=== PATIENT | female | born 1995 | race Hispanic/Latino ===

== ENCOUNTER 2016-06-21 14:33 | Emergency (ER) | payer SELFPAY ==
[2016-06-21 14:35] VITALS: BMI 33.3
[2016-06-21] MEDS ORDERED: guaiFENesin 200 mg/10 ml Syrup UD PO STA (15:12)
[2016-06-21] MEDS ORDERED: Levalbuterol 1.25 MG/3 ML Inhal Soln UD IH STA (15:12)
--- NOTE | 2016-06-21 15:22 | ED PDOC ---
Arrival/HPI - General Chief Complaint: Cough, Cold, Congestion Time Seen by Provider: 06/21/16 14:55 Historian: Patient - History of Present Illness Narrative History of Present Illness (Text): 06/21/16 15:04 A 20 year old female presents to the emergency department complaining of shortness of breath associated with mid sternal chest pain that began an hour prior to arrival. Patient reports every time she tries to take a breath her stomach retracts. She notes some dizziness but denies any anxiety, abdominal pain, nausea, vomiting, or any other complaints at this time. Patient last menstrual cycle was mid last month. PMD: Dr. Mckeon Time/Duration: 1 hour Symptom Onset: Sudden Symptom Course: Unchanged Quality: Other Activities at Onset: Rest Context: Home Past Medical History - Provider Review Nursing Documentation Reviewed: Yes - Infectious Disease Hx of Infectious Diseases: None - Tetanus Immunization Tetanus Immunization: Up to Date - Past Medical History Past Medical History: No Previous - Cardiac Hx Cardiac Disorders: No - Pulmonary Hx Respiratory Disorders: No - Neurological Hx Neurological Disorder: No - HEENT Hx HEENT Disorder: No - Renal Hx Renal Disorder: No - Endocrine/Metabolic Hx Endocrine Disorders: No - Hematological/Oncological Hx Blood Disorders: Yes Hx Anemia: Yes - Integumentary Hx Dermatological Disorder: No - Musculoskeletal/Rheumatological Hx Musculoskeletal Disorders: No Hx Falls: No - Gastrointestinal Hx Gastrointestinal Disorders: No - Genitourinary/Gynecological Hx Genitourinary Disorders: No - Psychiatric Hx Psychophysiologic Disorder: Yes Hx Depression: Yes Hx Substance Use: No - Past Surgical History Past Surgical History: No Previous - Anesthesia Hx Anesthesia: No Hx Anesthesia Reactions: No Hx Malignant Hyperthermia: No - Suicidal Assessment Feels Threatened In Home Enviroment: No Family/Social History - Physician Review Nursing Documentation Reviewed: Yes Family/Social History: No Known Family HX Smoking Status: Never Smoked Hx Alcohol Use: No Hx Substance Use: No Hx Substance Use Treatment: No Allergies/Home Meds Allergies/Adverse Reactions: Allergies tea tree Allergy (Verified 06/21/16 14:40) ANAPHYLAXIS Review of Systems - Physician Review All systems were reviewed & negative as marked: Yes - Review of Systems Constitutional: absent: Fevers ENT: Normal Respiratory: SOB Cardiovascular: Chest Pain Gastrointestinal: absent: Abdominal Pain, Nausea, Vomiting Genitourinary Female: absent: Dysuria Psychiatric: absent: Anxiety Physical Exam Vital Signs Reviewed: Yes Vital Signs Temp Pulse Resp BP Pulse Ox 06/21/16 17:00 65 18 112/59 L 99 06/21/16 15:24 97.6 F 68 18 110/58 L 99 Temperature: Afebrile Blood Pressure: Normal Pulse: Regular Respiratory Rate: Normal Appearance: Positive for: Other (appears to be actively hiccuping) Pain Distress: None Mental Status: Positive for: Alert and Oriented X 3 - Systems Exam Head: Present: Atraumatic, Normocephalic Pupils: Present: PERRL Conjunctiva: Present: Normal Mouth: Present: Moist Mucous Membranes Pharnyx: Present: Normal. No: ERYTHEMA, EXUDATE Neck: Present: Normal Range of Motion Respiratory/Chest: Present: Clear to Auscultation, Good Air Exchange. No: Respiratory Distress, Accessory Muscle Use Cardiovascular: Present: Regular Rate and Rhythm, Normal S1, S2. No: Murmurs Abdomen: Present: Normal Bowel Sounds. No: Tenderness, Distention, Peritoneal Signs Back: Present: Normal Inspection Upper Extremity: Present: Normal Inspection. No: Cyanosis, Edema Lower Extremity: Present: Normal Inspection. No: Edema Neurological: Present: GCS=15, CN II-XII Intact, Speech Normal Skin: Present: Warm, Dry, Normal Color. No: Rashes Psychiatric: Present: Alert, Oriented x 3, Normal Insight, Normal Concentration Medical Decision Making ED Course and Treatment: 06/21/16 15:04 Impression: A 20 year old female with shortness of breath and chest discomfort. Differential Diagnosis include but are not limited to: PE vs. bronchitis Plan: -- EKG -- Chest X-ray -- Labs -- POC Urine Preg -- Pepcid, Robitussin, and Xopenex -- Reassess and disposition Prior Visits: Notes and results from previous visits were reviewed. The patient last presented to the emergency department on 04/23/16 for evaluation of abdominal pain, nausea and vomiting. Progress Notes: EKG: Ordered, reviewed, and independently interpreted the EKG. Rate : 89 BPM Rhythm : NSR Interpretation : normal intervals, normal axis, no ST/T changes 06/21/16 18:40 Patient is feeling much better; says felt like the neb helped the most - symptoms have fully resolved. CXR is normal and d-dimer normal - will dc. - Lab Interpretations Lab Results: 06/21/16 16:05 Lab Results 06/21/16 16:05: D-Dimer, Quantitative 0.41 06/21/16 16:05: Sodium 136, Potassium 3.9, Chloride 106, Carbon Dioxide 23, Anion Gap 11, BUN 15, Creatinine 0.8, Est GFR ( Amer) > 60, Est GFR (Non- Af Amer) > 60, Random Glucose 80, Calcium 9.0, Total Bilirubin 0.5, AST 41 H, ALT 41, Alkaline Phosphatase 72, Total Protein 7.6, Albumin 4.1, Globulin 3.6, Albumin/Globulin Ratio 1.1 I have reviewed the lab results: Yes - RAD Interpretation Radiology Orders: 06/21/16 15:08 CHEST TWO VIEWS (PA/LAT) [RAD] Stat - Medication Orders Current Medication Orders: Discontinued Medications Famotidine (Pepcid) 20 mg IVP STAT STA Stop: 06/21/16 15:13 Last Admin: 06/21/16 16:14 Dose: 20 mg Guaifenesin (Robitussin) 400 mg PO ONCE STA Stop: 06/21/16 15:13 Last Admin: 06/21/16 16:14 Dose: 400 mg Levalbuterol HCl (Xopenex) 1.25 mg IH STAT STA Stop: 06/21/16 15:13 Last Admin: 06/21/16 16:14 Dose: 1.25 mg - Scribe Statement The provider has reviewed the documentation as recorded by the Nimisha Lema Provider Scribe Attestation: All medical record entries made by the Rodolfoibbijan were at my direction and personally dictated by me. I have reviewed the chart and agree that the record accurately reflects my personal performance of the history, physical exam, medical decision making, and the department course for this patient. I have also personally directed, reviewed, and agree with the discharge instructions and disposition. Disposition/Present on Arrival - Present on Arrival Any Indicators Present on Arrival: No History of DVT/PE: No History of Uncontrolled Diabetes: No Urinary Catheter: No History of Decub. Ulcer: No History Surgical Site Infection Following: None - Disposition Have Diagnosis and Disposition been Completed?: Yes Diagnosis: Atypical chest pain Disposition: HOME/ ROUTINE Disposition Time: 18:40 Patient Plan: Discharge Patient Problems: Current Active Problems Problem Status Onset Atypical chest pain Acute Condition: GOOD Discharge Instructions (ExitCare): Chest Pain (ED) Additional Instructions: Use Robitussin over the counter and prescribed inhaler as needed. Follow up with your primary care doctor. Return to the emergency department if any new concerning symptoms. Prescriptions: Albuterol HFA [Ventolin HFA 90 mcg/actuation (8 g)] 2 puff IH Q4H PRN #1 inhaler PRN Reason: Shortness Of Breath Referrals: Eleuterio Mckeon MD [Primary Care Provider] - Follow up with primary
[2016-06-21 15:25] VITALS: RESP 18; TEMP 97.6; O2SAT 99
[2016-06-21 16:41] LABS: ALB/GLOB RATIO 1.1 (1.1-1.8); ALKALINE PHOSPHATASE 72 U/L (38-133); ALT/SGPT 41 U/L (7-56); AST/SGOT 41 U/L (15-39); BILIRUBIN,TOTAL 0.5 mg/dL (0.2-1.3); BLOOD UREA NITROGEN 15 mg/dL (7-21); CARBON DIOXIDE 23 mmol/L (21-33); CHLORIDE 106 mmol/L (98-107); GFR AFRICAN-AMERICAN > 60; GLUCOSE,RANDOM 80 mg/dL (70-110); POTASSIUM 3.9 mmol/L (3.6-5.0); SODIUM 136 mmol/L (132-148); TOTAL PROTEIN 7.6 g/dL (5.8-8.3)
[2016-06-21 17:07] VITALS: BP 112/59; PULSE 65
--- NOTE | 2016-06-21 18:28 | RAD ---
HISTORY: chest pain COMPARISON: Chest x-ray performed 11/22/15 TECHNIQUE: Chest PA and lateral FINDINGS: Examination limited by habitus. LUNGS: No focal consolidation. Please note that chest x-ray has limited sensitivity for the detection of pulmonary masses. PLEURA: No significant pleural effusion identified. No definite pneumothorax . CARDIOVASCULAR: The cardiomediastinal silhouette appears within normal limits of size. OSSEOUS STRUCTURES: No acute osseous abnormality identified. VISUALIZED UPPER ABDOMEN: Unremarkable. OTHER FINDINGS: None. IMPRESSION: No focal consolidation, significant pleural effusion, or definite pneumothorax identified.
--- NOTE | 2016-06-22 13:06 | CARD ---
APPROVED REPORT EKG Measurement Heart [id number] <Conclusion> Normal sinus rhythm Normal ECG
== END 2016-06-21 18:50 | disposition home or self-care (01) ==
LOC: ED 14:33
DX: R07.89 Other chest pain (principal)

== ENCOUNTER 2016-07-06 14:29 | Emergency (ER) | payer OTHER ==
[2016-07-06 14:29] VITALS: BMI 33.3
[2016-07-06 15:22] VITALS: TEMP 98.1; O2SAT 100
--- NOTE | 2016-07-06 15:33 | ED PDOC ---
Arrival/HPI - General Time Seen by Provider: 07/06/16 14:44 Historian: Patient - History of Present Illness Narrative History of Present Illness (Text): 20 F with pmh of depression and anemia presents to the ED with shortness of breath and chest tightness. Pt stated that her sob started this morning when she was walking. She had a sudden onset of sob and chest tightness which is worse with deep breaths. She states that she tried Ventolin inhaler 3 times and the third time helped. She states that similar episode happened 2 weeks ago when she was first diagnosed and she came to the ED and was given her Ventolin inhaler. She denies any gómez, dizziness, f/c, cough, cp, palpitations, abd pain, n /v/d, urinary or bm changes. Time/Duration: Prior to Arrival Symptom Onset: Sudden Symptom Course: Improving Past Medical History - Provider Review Nursing Documentation Reviewed: Yes - Infectious Disease Hx of Infectious Diseases: None - Tetanus Immunization Tetanus Immunization: Up to Date - Past Medical History Past Medical History: No Previous - Cardiac Hx Cardiac Disorders: No - Pulmonary Hx Respiratory Disorders: No - Neurological Hx Neurological Disorder: No - HEENT Hx HEENT Disorder: No - Renal Hx Renal Disorder: No - Endocrine/Metabolic Hx Endocrine Disorders: No - Hematological/Oncological Hx Blood Disorders: Yes Hx Anemia: Yes - Integumentary Hx Dermatological Disorder: No - Musculoskeletal/Rheumatological Hx Musculoskeletal Disorders: No Hx Falls: No - Gastrointestinal Hx Gastrointestinal Disorders: No - Genitourinary/Gynecological Hx Genitourinary Disorders: No - Psychiatric Hx Psychophysiologic Disorder: Yes Hx Depression: Yes Hx Substance Use: No - Past Surgical History Past Surgical History: No Previous - Anesthesia Hx Anesthesia: No Hx Anesthesia Reactions: No Hx Malignant Hyperthermia: No - Suicidal Assessment Feels Threatened In Home Enviroment: No Family/Social History Family/Social History: No Known Family HX Smoking Status: Never Smoked Hx Alcohol Use: No Hx Substance Use: No Hx Substance Use Treatment: No Allergies/Home Meds Allergies/Adverse Reactions: Allergies tea tree Allergy (Verified 07/06/16 15:02) ANAPHYLAXIS Review of Systems - Review of Systems Constitutional: absent: Fatigue, Fevers Eyes: absent: Vision Changes ENT: absent: Hearing Changes Respiratory: SOB, Wheezing. absent: Cough Cardiovascular: absent: Chest Pain, Palpitations Gastrointestinal: absent: Abdominal Pain, Diarrhea, Nausea, Vomiting Genitourinary Female: absent: Dysuria, Frequency Skin: absent: Rash Neurological: absent: Headache, Dizziness Psychiatric: Depression. absent: Anxiety Physical Exam Vital Signs Temp Pulse Resp BP Pulse Ox 07/06/16 16:16 98.1 F 87 17 112/56 L 100 07/06/16 15:19 98.1 F 83 16 154/72 H 100 Temperature: Afebrile Blood Pressure: Hypertensive Pulse: Regular Respiratory Rate: Normal Appearance: Positive for: Well-Appearing, Non-Toxic, Comfortable Pain Distress: None Mental Status: Positive for: Alert and Oriented X 3 - Systems Exam Head: Present: Atraumatic, Normocephalic Pupils: Present: PERRL Extroacular Muscles: Present: EOMI Mouth: Present: Moist Mucous Membranes Neck: Present: Normal Range of Motion Respiratory/Chest: Present: Clear to Auscultation, Good Air Exchange. No: Respiratory Distress, Accessory Muscle Use, Wheezes, Rales Cardiovascular: Present: Regular Rate and Rhythm, Normal S1, S2. No: Murmurs Abdomen: Present: Normal Bowel Sounds. No: Tenderness, Distention, Peritoneal Signs Upper Extremity: Present: Normal Inspection. No: Cyanosis, Edema Lower Extremity: Present: Normal Inspection. No: Edema Neurological: Present: GCS=15, CN II-XII Intact, Speech Normal Skin: Present: Warm, Dry, Normal Color. No: Rashes Psychiatric: Present: Alert, Oriented x 3, Normal Insight, Normal Concentration Medical Decision Making ED Course and Treatment: Impression: 20 F with pmh of depression and anemia presents to the ED with shortness of breath and chest tightness. Differential diagnoses: Asthma exacerbation vs anxiety Plan: - CBC, CMP, Mg, P - EKG stat - CXR - Urinalysis - Duoneb x 3 - Solumedrol 12mg stat - Will reevaluate and dispo Patient was here on 06/21/16 here in the ED for similar symptoms. Progress Note: 07/06/16 16:22 CXR - No active disease Pt clinically improved. No wheezing on exam. Pt told to f/u with her PMD for better control of her asthma. - Lab Interpretations Lab Results: 07/06/16 15:25 07/06/16 15:25 Lab Results 07/06/16 15:25: Sodium 141, Potassium 4.0, Chloride 105, Carbon Dioxide 26, Anion Gap 14, BUN 14, Creatinine 1.0, Est GFR ( Amer) > 60, Est GFR (Non- Af Amer) > 60, Random Glucose 94, Calcium 9.7, Phosphorus 4.4, Magnesium 2.3 H, Total Bilirubin 0.4, AST 36, ALT 39, Alkaline Phosphatase 57, Total Protein 8.1 , Albumin 4.2, Globulin 3.9, Albumin/Globulin Ratio 1.1 07/06/16 15:25: Urine Color Yellow, Urine Appearance Clear, Urine pH 6.0, Ur Specific [place] >= 1.030, Urine Protein 30 H, Urine Glucose (UA) Negative, Urine Ketones Negative, Urine Blood Negative, Urine Nitrate Negative, Urine Bilirubin Negative, Urine Urobilinogen 1.0 H, Ur Leukocyte Esterase Negative, Urine RBC 0 - 2, Urine WBC 0 - 2, Ur Epithelial Cells 6 - 8, Calcium Oxalate Crystal Small, Urine Bacteria Mod 07/06/16 15:25: WBC 6.3, RBC 4.64, Hgb 12.4, Hct 37.4, MCV 80.6, MCH 26.7, MCHC 33.2, RDW 14.8 H, Plt Count 411, MPV 9.0, Gran % 53.5, Lymph % (Auto) 33.8, [place] % (Auto) 9.6 H, Eos % (Auto) 2.5, Baso % (Auto) 0.6, Gran # 3.39, Lymph # 2.1, [place] # 0.6, Eos # 0.2, Baso # 0.04 - RAD Interpretation Radiology Orders: 07/06/16 15:18 CXR [CHEST PORTABLE] [RAD] Stat - Medication Orders Current Medication Orders: Discontinued Medications Albuterol/Ipratropium (Duoneb 3 Mg/0.5 Mg (3 Ml) Ud) 3 ml IH Q15M [place] Stop: 07/06/16 16:16 Last Admin: 07/06/16 15:57 Dose: 3 ml Methylprednisolone (Solu-Medrol) 125 mg IVP STAT STA Stop: 07/06/16 15:35 Last Admin: 07/06/16 15:40 Dose: 125 mg Disposition/Present on Arrival - Present on Arrival Any Indicators Present on Arrival: Yes History of DVT/PE: No History of Uncontrolled Diabetes: No Urinary Catheter: No History Surgical Site Infection Following: None - Disposition Have Diagnosis and Disposition been Completed?: Yes Diagnosis: Asthma exacerbation Disposition: HOME/ ROUTINE Disposition Time: 16:26 Patient Plan: Discharge Patient Problems: Current Active Problems Problem Status Onset Asthma exacerbation Acute Condition: IMPROVED Additional Instructions: Charis Olivares, thank you for letting us take care of you today. Your provider was Dr Katz. You were treated for Asthma exacerbation. The emergency medical care you received today was directed at your acute symptoms. If you were prescribed any medication, please fill it and take as directed. It may take several days for your symptoms to resolve. Return to the Emergency Department if your symptoms worsen, do not improve, or if you have any other problems. Please contact your doctor or call one of the physicians/clinics you have been referred to that are listed on the Patient Visit Information form that is included in your discharge packet. Bring any paperwork you were given at discharge with you along with any medications you are taking to your follow up visit. Our treatment cannot replace ongoing medical care by a primary care provider (PCP) outside of the emergency department. Thank you for allowing the [facility] team to be part of your care today. If you had an X-Ray or CT scan: A Radiologist will review the ED reading if any change in treatment is needed we will contact you. If you had a blood, urine, or wound culture: It will take several days for the results, if any change in treatment is needed we will contact you. If you had an STI test: It will take 48 hours for the results. Please call after 1 week if you have not heard back. Prescriptions: Albuterol HFA [Ventolin HFA 90 mcg/actuation (8 g)] 2 puff IH Q4H PRN #1 puff PRN Reason: Shortness Of Breath Prednisone [Deltasone] 40 mg PO DAILY #4 tablet
[2016-07-06] MEDS: Albuterol-Ipratrop 3 mg / 0.5 (3 ml) UD IH SCH ×2 (15:40→15:57)
[2016-07-06 15:41] LABS: ADD MANUAL DIFF? NO
[2016-07-06 16:07] LABS: URINE BILIRUBIN NEGATIVE (NEGATIVE); URINE BLOOD NEGATIVE (NEGATIVE); URINE GLUCOSE (UA) NEGATIVE (NEGATIVE); URINE KETONE NEGATIVE (NEGATIVE); URINE LEUKOCYTE ESTERASE NEGATIVE Leu/uL (NEGATIVE); URINE PROTEIN 30 mg/dL (<30 mg/dL)
[2016-07-06 16:08] LABS: ALB/GLOB RATIO 1.1 (1.1-1.8); ALKALINE PHOSPHATASE 57 U/L (38-133); ALT/SGPT 39 U/L (7-56); AST/SGOT 36 U/L (15-39); BILIRUBIN,TOTAL 0.4 mg/dL (0.2-1.3); BLOOD UREA NITROGEN 14 mg/dL (7-21); CALCIUM 9.7 mg/dL (8.4-10.5); CARBON DIOXIDE 26 mmol/L (21-33); CHLORIDE 105 mmol/L (98-107); GFR AFRICAN-AMERICAN > 60; GLUCOSE,RANDOM 94 mg/dL (70-110); MAGNESIUM 2.3 mg/dL (1.7-2.2); PHOSPHOROUS 4.4 mg/dL (2.5-4.5); SODIUM 141 mmol/L (132-148); TOTAL PROTEIN 8.1 g/dL (5.8-8.3)
[2016-07-06 16:10] LABS: URINE APPEARANCE CLEAR (CLEAR); URINE COLOR YELLOW (YELLOW)
--- NOTE | 2016-07-06 16:11 | RAD ---
HISTORY: sob COMPARISON: 06/21/2016 FINDINGS: LUNGS: No active pulmonary disease. PLEURA: No significant pleural effusion identified, no pneumothorax apparent. CARDIOVASCULAR: Normal. OSSEOUS STRUCTURES: No significant abnormalities. VISUALIZED UPPER ABDOMEN: Normal. OTHER FINDINGS: None. IMPRESSION: No active disease.
[2016-07-06 16:13] LABS: HEMATOCRIT 37.4 % (36.0-48.0); MEAN CELL VOLUME 80.6 fL (80.0-105.0); MEAN CORPUSCULAR HEMOGLOBIN 26.7 pg (25.0-35.0); WHITE BLOOD COUNT 6.3 10^3/ul (4.5-11.0)
[2016-07-06 16:14] LABS: BASO % 0.6 % (0.0-3.0); EOS % 2.5 % (1.5-5.0); GRAN # 3.39 (1.4-6.5); GRAN % 53.5 % (50.0-68.0); LYMPH # 2.1 (1.2-3.4); LYMPH % 33.8 % (22.0-35.0); MEAN CORPUSCULAR HGB CONC 33.2 g/dl (31.0-37.0); MONO # 0.6 (0.1-0.6); MONO % 9.6 % (1.0-6.0); PLATELET COUNT 411 10^3/uL (120.0-450.0); RED CELL DISTRIBUTION WIDTH 14.8 % (11.5-14.5)
[2016-07-06 16:15] LABS: BASO # 0.04 K/mm3 (0.0-2.0); EOS # 0.2 (0.0-0.7)
[2016-07-06 16:17] VITALS: BP 112/56; PULSE 87; RESP 17
[2016-07-06 16:36] LABS: URINE BACTERIA MOD (NEG); URINE CALCIUM OXALATE CRYSTALS SMALL /hpf; URINE RBC 0 - 2 /hpf (0-2); URINE WBC 0 - 2 /hpf (0-6)
--- NOTE | 2016-07-07 10:16 | CARD ---
APPROVED REPORT EKG Measurement Heart [id number] <Conclusion> Normal sinus rhythm with sinus arrhythmia Normal ECG
== END 2016-07-06 16:45 | disposition home or self-care (01) ==
LOC: ED 14:29
DX: J45.901 Unspecified asthma with (acute) exacerbation (principal)
CPT/HCPCS: 71010; 80053; 81001; 83735; 84100; 84443; 85025; 93005; 96374; 99283; J2930

== ENCOUNTER 2016-07-29 13:02 | Emergency (ER) | payer OTHER ==
[2016-07-29 13:02] VITALS: BMI 33.3
[2016-07-29] MEDS ORDERED: Albuterol-Ipratrop 3 mg / 0.5 (3 ml) UD IH STA (13:08)
[2016-07-29 13:12] VITALS: BP 154/89; RESP 20; O2SAT 100
--- NOTE | 2016-07-29 13:15 | ED PDOC ---
Arrival/HPI - General Time Seen by Provider: 07/29/16 13:08 Historian: Patient - History of Present Illness Narrative History of Present Illness (Text): 07/29/16 13:02 Charis Olivares is a 20 year old female who presents to the emergency department complaining of difficulty breathing that began about 1/2 an hour ago. Patient states that she was working when she began to experience a sudden onset of shortness of breath and mid-sternal chest pain. Patient notes that she experienced similar symptoms before and was diagnosed with Asthma after being evaluated at the hospital and by her doctor. Patient currently uses an inhaler. Patient denies any other complaint at this time. Patient states that she is not a smoker and her last menstrual cycle was 2 weeks ago. PMD: Dr. Mckeon Time/Duration: 1/2 hour Symptom Onset: Sudden Symptom Course: Unchanged Severity Level: Moderate Activities at Onset: Light Context: Work Associated Symptoms (Text): 07/29/16 13:35 Acute onset of shortness of breath and chest pain 30 minutes prior to arrival. Patient is hyperventilating and extremely anxious and has symptoms out of proportion to her examination. Her pulse oximetry is 100%. Her lungs are clear. She has had similar episodes in the past diagnosed with asthma. No cough congestion or URI. Past Medical History - Provider Review Nursing Documentation Reviewed: Yes - Infectious Disease Hx of Infectious Diseases: None - Tetanus Immunization Tetanus Immunization: Up to Date - Past Medical History Past Medical History: No Previous - Cardiac Hx Cardiac Disorders: No - Pulmonary Hx Respiratory Disorders: No - Neurological Hx Neurological Disorder: No - HEENT Hx HEENT Disorder: No - Renal Hx Renal Disorder: No - Endocrine/Metabolic Hx Endocrine Disorders: No - Hematological/Oncological Hx Blood Disorders: Yes Hx Anemia: Yes - Integumentary Hx Dermatological Disorder: No - Musculoskeletal/Rheumatological Hx Musculoskeletal Disorders: No Hx Falls: No - Gastrointestinal Hx Gastrointestinal Disorders: No - Genitourinary/Gynecological Hx Genitourinary Disorders: No - Psychiatric Hx Psychophysiologic Disorder: Yes Hx Depression: Yes Hx Substance Use: No - Past Surgical History Past Surgical History: No Previous - Anesthesia Hx Anesthesia: No Hx Anesthesia Reactions: No Hx Malignant Hyperthermia: No - Suicidal Assessment Feels Threatened In Home Enviroment: No Family/Social History - Physician Review Nursing Documentation Reviewed: Yes Family/Social History: No Known Family HX Smoking Status: Never Smoked Hx Alcohol Use: No Hx Substance Use: No Hx Substance Use Treatment: No Allergies/Home Meds Allergies/Adverse Reactions: Allergies tea tree Allergy (Verified 07/06/16 15:02) ANAPHYLAXIS Review of Systems - Physician Review All systems were reviewed & negative as marked: Yes - Review of Systems Constitutional: absent: Fevers, Night Sweats Eyes: absent: Vision Changes ENT: absent: Hearing Changes Respiratory: SOB. absent: Cough Cardiovascular: Chest Pain. absent: Palpitations, Syncope Gastrointestinal: absent: Abdominal Pain, Diarrhea, Nausea, Vomiting, Appetite Changes Genitourinary Female: absent: Dysuria, Urine Output Changes Musculoskeletal: absent: Arthralgias, Back Pain, Neck Pain Skin: absent: Rash Neurological: absent: Headache, Dizziness Endocrine: absent: Diaphoresis Hemo/Lymphatic: absent: Adenopathy Psychiatric: absent: Anxiety Physical Exam Vital Signs Temp Pulse Resp BP Pulse Ox 07/29/16 16:01 98.6 F 88 20 100 07/29/16 13:02 97.9 F 72 20 154/89 H 100 Temperature: Afebrile Blood Pressure: Hypertensive Pulse: Regular Respiratory Rate: Tachypneic Appearance: Positive for: Uncomfortable, Other (obese) Pain Distress: None Mental Status: Positive for: Alert and Oriented X 3 - Systems Exam Head: Present: Atraumatic, Normocephalic Pupils: Present: PERRL Extroacular Muscles: Present: EOMI Conjunctiva: No: Normal, Injected, Icteric, Other Mouth: Present: Moist Mucous Membranes Pharnyx: No: ERYTHEMA, EXUDATE, TONSILS ENLARGED Neck: Present: Normal Range of Motion Respiratory/Chest: Present: Decreased Breath Sounds (diminished), Tachypneic, Tender to Palpation (Chest tender, which reproduces pain). No: Wheezes, Rales, Rhonchi Cardiovascular: Present: Regular Rate and Rhythm, Normal S1, S2. No: Murmurs Abdomen: Present: Normal Bowel Sounds. No: Tenderness, Distention, Peritoneal Signs Upper Extremity: Present: Normal Inspection. No: Cyanosis, Edema Lower Extremity: Present: Normal Inspection. No: Edema Neurological: Present: GCS=15, CN II-XII Intact, Speech Normal, Motor Func Grossly Intact Skin: Present: Warm, Dry, Normal Color. No: Rashes Psychiatric: Present: Alert, Oriented x 3, Normal Insight, Normal Concentration Medical Decision Making ED Course and Treatment: 07/29/16 13:02 Impression: 20 year old female complaining of difficulty breathing which began about 1/2 an hour ago. Plan: -- EKG -- Chest X-ray -- Labs -- Duoneb -- Reassess and disposition Prior Visits: Notes and results from previous visits were reviewed. Patient last seen in the ED on 07/06/16 for shortness of breath and chest tightness for one day. Patient was discharged home. Progress Notes: 07/29/16 13:37 EKG shows normal sinus rhythm rate approximately [address] or T-wave changes. 07/29/16 15:47 Workup is negative including d-dimer and troponin. Patient is markedly improved after one high flow nebulizer treatment. I suspect that much of her symptomatology is anxiety related. - Lab Interpretations Lab Results: 07/29/16 13:20 07/29/16 13:20 Lab Results 07/29/16 13:20: Sodium 143, Potassium 3.5 L, Chloride 109 H, Carbon Dioxide 24, Anion Gap 14, BUN 21, Creatinine 1.1, Est GFR ( Amer) > 60, Est GFR (Non- Af Amer) > 60, Random Glucose 92, Calcium 9.6, Total Bilirubin 0.4, AST 30, ALT 32, Alkaline Phosphatase 58, Lactate Dehydrogenase 395, Total Creatine Kinase 151, Troponin I < 0.01, NT-Pro-B Natriuret Pep 35.8, Total Protein 7.4, Albumin 4.2, Globulin 3.2, Albumin/Globulin Ratio 1.3 07/29/16 13:20: D-Dimer, Quantitative 0.19 07/29/16 13:20: WBC 8.3 D, RBC 4.62, Hgb 12.3, Hct 37.3, MCV 80.7, MCH 26.6, MCHC 33.0, RDW 15.2 H, Plt Count 353, MPV 9.5, Gran % 65.6, Lymph % (Auto) 24.7 , Me[place] % (Auto) 8.0 H, Eos % (Auto) 1.5, Baso % (Auto) 0.2, Gran # 5.42, Lymph # 2.0, Meigs # 0.7 H, Eos # 0.1, Baso # 0.02 I have reviewed the lab results: Yes - RAD Interpretation Radiology Orders: 07/29/16 13:09 CHEST PORTABLE [RAD] Stat Chest one view shows no infiltrate effusion or cardiomegaly Glue Spreader: ED Physician - Medication Orders Current Medication Orders: Discontinued Medications Albuterol/Ipratropium (Duoneb 3 Mg/0.5 Mg (3 Ml) Ud) 3 ml IH ONCE STA Stop: 07/29/16 13:09 Last Admin: 07/29/16 13:10 Dose: 3 ml Potassium Chloride (Klor-Con 10) 10 meq PO STAT STA Stop: 07/29/16 15:14 Last Admin: 07/29/16 15:30 Dose: 10 meq - Scribe Statement The provider has reviewed the documentation as recorded by the Nimisha Mathews Provider Scribe Attestation: All medical record entries made by the Scribe were at my direction and personally dictated by me. I have reviewed the chart and agree that the record accurately reflects my personal performance of the history, physical exam, medical decision making, and the department course for this patient. I have also personally directed, reviewed, and agree with the discharge instructions and disposition. Disposition/Present on Arrival - Present on Arrival Any Indicators Present on Arrival: No History of DVT/PE: No History of Uncontrolled Diabetes: No Urinary Catheter: No History of Decub. Ulcer: No History Surgical Site Infection Following: None - Disposition Have Diagnosis and Disposition been Completed?: Yes Diagnosis: Dyspnea, Asthma, Anxiety Disposition: HOME/ ROUTINE Disposition Time: 15:48 Patient Plan: Discharge Condition: IMPROVED Discharge Instructions (ExitCare): Chest Pain (ED), Asthma (ED), Dyspnea (ED), Hypertension (ED), Anxiety (ED) Prescriptions: Albuterol HFA [Ventolin HFA 90 mcg/actuation (8 g)] 2 puff IH [id number] #1 puff Referrals: Eleuterio Mckeon MD [Primary Care Provider] - Follow up with primary Forms: WORK NOTE
[2016-07-29 13:32] LABS: ADD MANUAL DIFF? NO
[2016-07-29 13:36] LABS: BASO # 0.02 K/mm3 (0.0-2.0); BASO % 0.2 % (0.0-3.0); EOS # 0.1 (0.0-0.7); EOS % 1.5 % (1.5-5.0); GRAN # 5.42 (1.4-6.5); GRAN % 65.6 % (50.0-68.0); HEMATOCRIT 37.3 % (36.0-48.0); LYMPH % 24.7 % (22.0-35.0); MEAN CELL VOLUME 80.7 fL (80.0-105.0); MEAN CORPUSCULAR HEMOGLOBIN 26.6 pg (25.0-35.0); MEAN PLATELET VOLUME 9.5 fl (7.0-11.0); MONO # 0.7 (0.1-0.6); PLATELET COUNT 353 10^3/uL (120.0-450.0); RED CELL DISTRIBUTION WIDTH 15.2 % (11.5-14.5); WHITE BLOOD COUNT 8.3 10^3/ul (4.5-11.0)
[2016-07-29 13:45] LABS: ALB/GLOB RATIO 1.3 (1.1-1.8); ALKALINE PHOSPHATASE 58 U/L (38-133); ALT/SGPT 32 U/L (7-56); AST/SGOT 30 U/L (15-39); BILIRUBIN,TOTAL 0.4 mg/dL (0.2-1.3); BLOOD UREA NITROGEN 21 mg/dL (7-21); CALCIUM 9.6 mg/dL (8.4-10.5); CARBON DIOXIDE 24 mmol/L (21-33); CHLORIDE 109 mmol/L (98-107); GFR AFRICAN-AMERICAN > 60; GLUCOSE,RANDOM 92 mg/dL (70-110); POTASSIUM 3.5 mmol/L (3.6-5.0); SODIUM 143 mmol/L (132-148); TOTAL PROTEIN 7.4 g/dL (5.8-8.3)
--- NOTE | 2016-07-29 14:10 | RAD ---
HISTORY: cp COMPARISON: Chest x-ray performed 07/06/16 TECHNIQUE: Chest, one view. FINDINGS: LUNGS: No focal consolidation. Please note that chest x-ray has limited sensitivity for the detection of pulmonary masses. PLEURA: No significant pleural effusion identified. No definite pneumothorax . CARDIOVASCULAR: The cardiomediastinal silhouette appears within normal limits of size. OSSEOUS STRUCTURES: No acute osseous abnormality identified. VISUALIZED UPPER ABDOMEN: Unremarkable. OTHER FINDINGS: None. IMPRESSION: No focal consolidation, significant pleural effusion, or definite pneumothorax identified.
[2016-07-29] MEDS ORDERED: Potassium Chloride 10 mEq ER Tab PO STA (15:13)
[2016-07-29 15:44] LABS: TROPONIN I < 0.01 ng/mL
[2016-07-29 16:02] VITALS: PULSE 88; TEMP 98.6
--- NOTE | 2016-07-29 18:49 | CARD ---
APPROVED REPORT EKG Measurement Heart [id number] <Conclusion> Normal sinus rhythm with sinus arrhythmia Normal ECG
== END 2016-07-29 16:01 | disposition home or self-care (01) ==
LOC: ED 13:02
DX: J45.909 Unspecified asthma, uncomplicated (principal); F41.9 Anxiety disorder, unspecified; R06.00 Dyspnea, unspecified

== ENCOUNTER 2016-08-22 19:03 | Emergency (ER) | payer OTHER ==
[2016-08-22 19:05] VITALS: BMI 33.3
[2016-08-22 19:38] VITALS: TEMP 98
[2016-08-22 19:48] LABS: ADD MANUAL DIFF? NO
[2016-08-22 19:51] LABS: BASO # 0.03 K/mm3 (0.0-2.0); BASO % 0.4 % (0.0-3.0); EOS # 0.1 (0.0-0.7); GRAN # 5.71 (1.4-6.5); GRAN % 70.4 % (50.0-68.0); HEMATOCRIT 34.4 % (36.0-48.0); LYMPH # 1.7 (1.2-3.4); LYMPH % 20.6 % (22.0-35.0); MEAN CELL VOLUME 80.8 fL (80.0-105.0); MEAN CORPUSCULAR HEMOGLOBIN 26.3 pg (25.0-35.0); MEAN CORPUSCULAR HGB CONC 32.6 g/dl (31.0-37.0); MEAN PLATELET VOLUME 8.8 fl (7.0-11.0); MONO # 0.6 (0.1-0.6); MONO % 7.6 % (1.0-6.0); PLATELET COUNT 333 10^3/uL (120.0-450.0); RED CELL DISTRIBUTION WIDTH 14.7 % (11.5-14.5); WHITE BLOOD COUNT 8.1 10^3/ul (4.5-11.0)
[2016-08-22 20:01] LABS: ALB/GLOB RATIO 1.2 (1.1-1.8); ALKALINE PHOSPHATASE 58 U/L (38-133); ALT/SGPT 24 U/L (7-56); AST/SGOT 30 U/L (15-39); BILIRUBIN,TOTAL 0.3 mg/dL (0.2-1.3); BLOOD UREA NITROGEN 22 mg/dL (7-21); CALCIUM 9.1 mg/dL (8.4-10.5); CARBON DIOXIDE 25 mmol/L (21-33); CHLORIDE 107 mmol/L (98-107); GFR AFRICAN-AMERICAN > 60; GLUCOSE,RANDOM 103 mg/dL (70-110); POTASSIUM 3.8 mmol/L (3.6-5.0); SODIUM 139 mmol/L (132-148); TOTAL PROTEIN 6.7 g/dL (5.8-8.3)
[2016-08-22 20:14] LABS: TROPONIN I < 0.01 ng/mL
[2016-08-22 20:18] LABS: T4 6.5 ug/dL (5.5-11.0)
[2016-08-22 20:32] LABS: THYROID STIMULATING HORMONE 0.68 mIU/mL (0.46-4.68)
--- NOTE | 2016-08-22 21:25 | ED PDOC ---
Arrival/HPI - General Chief Complaint: Palpitations Time Seen by Provider: 08/22/16 19:17 Historian: Patient - History of Present Illness Narrative History of Present Illness (Text): 08/22/16 19:20 Charis Olivares is a 20 year old female who presents to the emergency department complaining of palpitations that began about 1/2 hour ago. Patient denies any chest pain, shortness of breath, or any other complaint at this time. PMD: Dr. Mckeon Time/Duration: 1/2 hour Symptom Onset: Sudden Symptom Course: Unchanged Severity Level: Mild Activities at Onset: Rest Context: Home Past Medical History - Provider Review Nursing Documentation Reviewed: Yes - Infectious Disease Hx of Infectious Diseases: None - Tetanus Immunization Tetanus Immunization: Up to Date - Past Medical History Past Medical History: No Previous - Cardiac Hx Cardiac Disorders: No - Pulmonary Hx Asthma: Yes - Neurological Hx Neurological Disorder: No - HEENT Hx HEENT Disorder: No - Renal Hx Renal Disorder: No - Endocrine/Metabolic Hx Endocrine Disorders: No - Hematological/Oncological Hx Blood Disorders: Yes Hx Anemia: Yes - Integumentary Hx Dermatological Disorder: No - Musculoskeletal/Rheumatological Hx Musculoskeletal Disorders: No Hx Falls: No - Gastrointestinal Hx Gastrointestinal Disorders: No - Genitourinary/Gynecological Hx Genitourinary Disorders: No - Psychiatric Hx Psychophysiologic Disorder: Yes Hx Depression: Yes Hx Substance Use: No - Past Surgical History Past Surgical History: No Previous - Anesthesia Hx Anesthesia: No Hx Anesthesia Reactions: No Hx Malignant Hyperthermia: No - Suicidal Assessment Feels Threatened In Home Enviroment: No Family/Social History - Physician Review Nursing Documentation Reviewed: Yes Family/Social History: No Known Family HX Smoking Status: Never Smoked Hx Alcohol Use: No Hx Substance Use: No Hx Substance Use Treatment: No Allergies/Home Meds Allergies/Adverse Reactions: Allergies tea tree Allergy (Verified 08/22/16 19:13) ANAPHYLAXIS Review of Systems - Physician Review All systems were reviewed & negative as marked: Yes - Review of Systems Constitutional: absent: Fevers, Night Sweats Eyes: absent: Vision Changes ENT: absent: Hearing Changes Respiratory: absent: SOB Cardiovascular: Palpitations. absent: Chest Pain Gastrointestinal: absent: Abdominal Pain Genitourinary Female: absent: Dysuria, Frequency Musculoskeletal: absent: Arthralgias, Back Pain, Neck Pain Skin: absent: Rash, Pruritis Neurological: absent: Headache Endocrine: absent: Diaphoresis Hemo/Lymphatic: absent: Adenopathy Psychiatric: absent: Anxiety Physical Exam Vital Signs Reviewed: Yes Vital Signs Temp Pulse Resp BP Pulse Ox 08/22/16 19:38 98.0 F 103 H 19 130/73 99 Temperature: Afebrile Blood Pressure: Normal Pulse: Tachycardic Respiratory Rate: Normal Appearance: Positive for: Well-Appearing, Non-Toxic, Comfortable Pain Distress: None Mental Status: Positive for: Alert and Oriented X 3 - Systems Exam Head: Present: Atraumatic, Normocephalic Pupils: Present: PERRL Extroacular Muscles: Present: EOMI Conjunctiva: Present: Normal Mouth: Present: Moist Mucous Membranes Neck: Present: Normal Range of Motion Respiratory/Chest: Present: Clear to Auscultation, Good Air Exchange. No: Respiratory Distress, Accessory Muscle Use Cardiovascular: Present: Regular Rate and Rhythm, Normal S1, S2. No: Murmurs Abdomen: Present: Normal Bowel Sounds. No: Tenderness, Distention, Peritoneal Signs Back: Present: Normal Inspection Upper Extremity: Present: Normal Inspection. No: Cyanosis, Edema Lower Extremity: Present: Normal Inspection. No: Edema Neurological: Present: GCS=15, CN II-XII Intact, Speech Normal Skin: Present: Warm, Dry, Normal Color. No: Rashes Psychiatric: Present: Alert, Oriented x 3, Normal Insight, Normal Concentration Medical Decision Making ED Course and Treatment: 08/22/16 19:20 Impression: 20 year old female complaining of palpitations that began about 1/2 hour ago. Differential Diagnosis included but are not limited to: Plan: -- EKG -- Nasal Cannula -- Reassess and disposition Prior Visits: Notes and results from previous visits were reviewed. Patient last seen in the ED on 07/29/16 for 1/2 hour duration of difficulty breathing that day. Patient was discharged home. Progress Notes: EKG: Ordered, reviewed, and independently interpreted the EKG. Rate : 102 BPM Rhythm : Sinus Tachycardia Interpretation : No ST-segment elevations or depressions, no T-wave inversions, normal intervals. Comparison : No previous EKG for comparison. Re-evaluation Time: 21:31 Reassessment Condition: Re-examined, Improved - Lab Interpretations Lab Results: 08/22/16 19:35 08/22/16 19:35 Lab Results 08/22/16 19:46: Urine HCG, Qual Negative 08/22/16 19:35: Thyroxine (T4) 6.5, TSH 3rd Generation 0.68 08/22/16 19:35: D-Dimer, Quantitative 0.19 08/22/16 19:35: Sodium 139, Potassium 3.8, Chloride 107, Carbon Dioxide 25, Anion Gap 11, BUN 22 H, Creatinine 1.3, Est GFR ( Amer) > 60, Est GFR ( Non-Af Amer) 51, Random Glucose 103, Calcium 9.1, Total Bilirubin 0.3, AST 30, ALT 24, Alkaline Phosphatase 58, Lactate Dehydrogenase 364, Total Creatine Kinase 157, Troponin I < 0.01, Total Protein 6.7, Albumin 3.7, Globulin 3.1, Albumin/Globulin Ratio 1.2 08/22/16 19:35: WBC 8.1, RBC 4.26, Hgb 11.2 L, Hct 34.4 L, MCV 80.8, MCH 26.3, MCHC 32.6, RDW 14.7 H, Plt Count 333, MPV 8.8, Gran % 70.4 H, Lymph % (Auto) 20.6 L, [place]cl[place] % (Auto) 7.6 H, Eos % (Auto) 1.0 L, Baso % (Auto) 0.4, Gran # 5.71 , Lymph # 1.7, Mcclain # 0.6, Eos # 0.1, Baso # 0.03 I have reviewed the lab results: Yes - Scribe Statement The provider has reviewed the documentation as recorded by the Scribe Provider Attestation: Sylvie Mathews Provider Scribe Attestation: All medical record entries made by the Scribe were at my direction and personally dictated by me. I have reviewed the chart and agree that the record accurately reflects my personal performance of the history, physical exam, medical decision making, and the department course for this patient. I have also personally directed, reviewed, and agree with the discharge instructions and disposition. Disposition/Present on Arrival - Present on Arrival Any Indicators Present on Arrival: No History of DVT/PE: No History of Uncontrolled Diabetes: No Urinary Catheter: No History of Decub. Ulcer: No History Surgical Site Infection Following: None - Disposition Have Diagnosis and Disposition been Completed?: Yes Diagnosis: Palpitations Disposition: HOME/ ROUTINE Disposition Time: 21:31 Patient Problems: Current Active Problems Problem Status Onset Palpitations Acute Condition: GOOD Discharge Instructions (ExitCare): Palpitations (ED) Referrals: Eleuterio Mckeon MD [Primary Care Provider] - Follow up with primary Forms: WORK NOTE
[2016-08-22 21:41] VITALS: BP 116/59; PULSE 89; RESP 17; O2SAT 98
--- NOTE | 2016-08-23 09:54 | CARD ---
APPROVED REPORT EKG Measurement Heart [id number] <Conclusion> Sinus tachycardia Otherwise normal ECG
== END 2016-08-22 21:41 | disposition home or self-care (01) ==
LOC: ED 19:03
DX: R00.2 Palpitations (principal)

== ENCOUNTER 2016-09-02 05:33 | Emergency (ER) | payer OTHER ==
[2016-09-02 05:33] VITALS: BMI 33.3
--- NOTE | 2016-09-02 06:22 | ED PDOC ---
Arrival/HPI - General Chief Complaint: Syncope Time Seen by Provider: 09/02/16 05:34 Historian: Patient - History of Present Illness Narrative History of Present Illness (Text): 09/02/16 06:16 Charis Olivares is a 20 year old female with a past medical history significant for palpitations, asthma, and anxiety who presents to the emergency department after experiencing an unwitnessed syncopal episode 1 hour prior to arrival. Pt reports she was walking to work and before entering her workplace she states she fainted. She only remembers waking up to a superintendent police preforming a sternal rub on her anterior chest. She is unsure of any trauma as a result of the fall and denies any loss of bowel as well as denies a post-ictal state. She does report previous episode of syncope within the past month. She denies chest pain, palpitations, nausea, and heightened sense of anxiety. Past Medical History - Provider Review Nursing Documentation Reviewed: Yes - Infectious Disease Hx of Infectious Diseases: None - Tetanus Immunization Tetanus Immunization: Up to Date - Past Medical History Past Medical History: No Previous - Cardiac Hx Cardiac Disorders: No - Pulmonary Hx Asthma: Yes - Neurological Hx Neurological Disorder: No - HEENT Hx HEENT Disorder: No - Renal Hx Renal Disorder: No - Endocrine/Metabolic Hx Endocrine Disorders: No - Hematological/Oncological Hx Blood Disorders: Yes Hx Anemia: Yes - Integumentary Hx Dermatological Disorder: No - Musculoskeletal/Rheumatological Hx Musculoskeletal Disorders: No Hx Falls: No - Gastrointestinal Hx Gastrointestinal Disorders: No - Genitourinary/Gynecological Hx Genitourinary Disorders: No - Psychiatric Hx Psychophysiologic Disorder: Yes Hx Depression: Yes Hx Substance Use: No - Past Surgical History Past Surgical History: No Previous - Anesthesia Hx Anesthesia: No Hx Anesthesia Reactions: No Hx Malignant Hyperthermia: No - Suicidal Assessment Feels Threatened In Home Enviroment: No Family/Social History Family/Social History: Diabetes Smoking Status: Never Smoked Hx Alcohol Use: No Hx Substance Use: No Hx Substance Use Treatment: No Allergies/Home Meds Allergies/Adverse Reactions: Allergies tea tree Allergy (Verified 09/02/16 05:50) ANAPHYLAXIS Review of Systems - Review of Systems Constitutional: absent: Fatigue, Weight Change, Fevers Eyes: absent: Vision Changes, Photophobia ENT: absent: Hearing Changes Respiratory: SOB. absent: Cough, Sputum, Wheezing Cardiovascular: Syncope. absent: Chest Pain, Palpitations Gastrointestinal: absent: Abdominal Pain, Constipation, Diarrhea, Nausea, Vomiting Genitourinary Female: absent: Dysuria Musculoskeletal: absent: Arthralgias, Myalgias Skin: Normal. absent: Rash, Pruritis Neurological: Headache. absent: Focal Weakness, Disequilibrium Psychiatric: Normal. absent: Anxiety, Depression Physical Exam Vital Signs Reviewed: Yes Vital Signs Temp Pulse Resp BP Pulse Ox 09/02/16 05:51 98.8 F 70 18 112/69 98 Temperature: Afebrile Blood Pressure: Normal Pulse: Regular Respiratory Rate: Normal Appearance: Positive for: Well-Appearing Pain Distress: None Mental Status: Positive for: Alert and Oriented X 3 Finger Stick Blood Glucose: 79 - Systems Exam Head: Present: Atraumatic, Normocephalic Pupils: Present: PERRL Extroacular Muscles: Present: EOMI Conjunctiva: Present: Normal Mouth: Present: Moist Mucous Membranes. No: Dry Neck: Present: Normal Range of Motion Respiratory/Chest: Present: Clear to Auscultation, Good Air Exchange. No: Respiratory Distress, Accessory Muscle Use, Wheezes Cardiovascular: Present: Regular Rate and Rhythm, Normal S1, S2. No: Murmurs Abdomen: Present: Normal Bowel Sounds. No: Tenderness, Distention, Peritoneal Signs Upper Extremity: Present: Normal Inspection, NORMAL PULSES. No: Cyanosis Lower Extremity: Present: Normal Inspection, NORMAL PULSES. No: Edema Neurological: Present: GCS=15, CN II-XII Intact, Speech Normal Skin: Present: Warm, Dry Psychiatric: Present: Alert, Oriented x 3, Normal Insight Medical Decision Making ED Course and Treatment: 09/02/16 06:36 Impression: Charis Olivares is a 20 year old female who complains of syncopal episode within 1 hour prior to admission. Differential Diagnosis included but are not limited to: Neurocardiogenic vs. Cardiovascular syncope Plan: - Chest x-ray - EKG - Labs: Mg, CBC, Urinalysis, Urine preg. - Reassess and disposition Progress Notes: - Lab Interpretations Lab Results: 09/02/16 06:20 Lab Results 09/02/16 06:20: Sodium 137, Potassium 4.6, Chloride 107, Carbon Dioxide 21, Anion Gap 14, BUN 19, Creatinine 1.0, Est GFR ( Amer) > 60, Est GFR (Non- Af Amer) > 60, Random Glucose 83, Calcium 9.8, Magnesium 2.1, Total Bilirubin 0.4, AST 27, ALT 32, Alkaline Phosphatase 64, Lactate Dehydrogenase 391, Total Creatine Kinase 155, Troponin I Pending, Total Protein 7.8, Albumin 4.2, Globulin 3.6, Albumin/Globulin Ratio 1.2 09/02/16 05:43: POC Glucose (mg/dL) 79 I have reviewed the lab results: Yes - RAD Interpretation Radiology Orders: 09/02/16 06:02 CHEST PORTABLE [RAD] Stat - EKG Interpretation Interpreted by ED Physician: Yes (Normal Sinus Rhythm) Type: 12 lead EKG Disposition/Present on Arrival - Present on Arrival Any Indicators Present on Arrival: No History of DVT/PE: No History of Uncontrolled Diabetes: No Urinary Catheter: No History of Decub. Ulcer: No History Surgical Site Infection Following: None - Disposition Have Diagnosis and Disposition been Completed?: Yes Diagnosis: Syncope Disposition: HOME/ ROUTINE Disposition Time: 07:00 Patient Problems: Current Active Problems Problem Status Onset Syncope Acute Condition: GOOD Discharge Instructions (ExitCare): Syncope (ED)
[2016-09-02 06:45] LABS: ALB/GLOB RATIO 1.2 (1.1-1.8); ALBUMIN 4.2 g/dL (3.0-4.8); ALT/SGPT 32 U/L (7-56); AST/SGOT 27 U/L (15-39); BLOOD UREA NITROGEN 19 mg/dL (7-21); CALCIUM 9.8 mg/dL (8.4-10.5); GFR AFRICAN-AMERICAN > 60; GFR NON-AFRICAN AMERICAN > 60; MAGNESIUM 2.1 mg/dL (1.7-2.2)
[2016-09-02 06:46] LABS: BASO # 0.04 K/mm3 (0.0-2.0); BASO % 0.5 % (0.0-3.0); EOS # 0.3 (0.0-0.7); EOS % 3.7 % (1.5-5.0); GRAN # 5.47 (1.4-6.5); GRAN % 66.6 % (50.0-68.0); HEMOGLOBIN 13.2 gm/dL (12.0-16.0); LYMPH # 1.6 (1.2-3.4); LYMPH % 19.8 % (22.0-35.0); MEAN CELL VOLUME 81.5 fL (80.0-105.0); MEAN CORPUSCULAR HEMOGLOBIN 26.9 pg (25.0-35.0); MEAN PLATELET VOLUME 9.3 fl (7.0-11.0); MONO # 0.8 (0.1-0.6); MONO % 9.4 % (1.0-6.0); PLATELET COUNT 322 10^3/uL (120.0-450.0); RBC 4.91 10^6/uL (3.5-6.1); RED CELL DISTRIBUTION WIDTH 15.1 % (11.5-14.5); WHITE BLOOD COUNT 8.2 10^3/ul (4.5-11.0)
[2016-09-02 06:57] LABS: TROPONIN I < 0.01 ng/mL
--- NOTE | 2016-09-02 07:06 | ED PDOC ---
Physical Exam Vital Signs Reviewed: Yes Vital Signs Temp Pulse Resp BP Pulse Ox 09/02/16 09:00 98 F 61 18 128/71 99 09/02/16 07:05 68 12 119/65 100 09/02/16 05:51 98.8 F 70 18 112/69 98 Temperature: Afebrile Blood Pressure: Normal Pulse: Regular Respiratory Rate: Normal Appearance: Positive for: Well-Appearing, Non-Toxic, Comfortable Pain Distress: None Mental Status: Positive for: Alert and Oriented X 3 Finger Stick Blood Glucose: 79 Medical Decision Making ED Course and Treatment: 09/02/16 07:00 Case signed out to me from overnight by Dr. Rolle, pending lab work, imaging , reevaluation and final disposition. The patient is a 20 year old female who presented to the emergency department earlier today for evaluation after an unwitnessed syncopal episodes. 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 Patient EKG was normal. Pending chest x-ray and lab work. Currently the patient is resting comfortable waiting for results. 09/02/16 07:16 Chest X-ray Impression: As read by me, shows no acute findings. 09/02/16 07:22 On reevaluation, the patient states this morning she did not have breakfast. She states on the way to work she felt lightheaded prior to the syncopal episodes. She says currently she is still slightly lightheaded. She denies any history of asthma. She denies any chest pain or shortness of breath associated with the syncopal episodes. 09/02/16 07:46 EKG shows NSR at 74bpm with nromal intervals and Qtc:424. Cxray negative. CBC and CMP grossly normal. negative. 09/02/16 09:08 On re-evaluation, the patient feels better and is in no acute distress. Patient is tolerating PO and ambulating around the emergency department without difficulty. She reports that she wants to go home. Based on [place] syncope rule she is low risk. I have discussed the results and plan with the patient, who expresses understanding. Patient in agreement with plan to discharged home. Patient is stable for discharge. Patient was instructed to follow up with physician/clinic in 1-2 days or return if symptoms worsen or new concerning symptoms arise. 09/02/16 09:50 - Lab Interpretations Lab Results: 09/02/16 06:20 09/02/16 06:20 Lab Results 09/02/16 06:40: Urine Color Yellow, Urine Appearance Clear, Urine pH 5.5, Ur Specific [place] >= 1.030, Urine Protein Negative, Urine Glucose (UA) Negative, Urine Ketones Negative, Urine Blood Small H, Urine Nitrate Negative, Urine Bilirubin Negative, Urine Urobilinogen 0.2, Ur Leukocyte Esterase Small H, Urine RBC 0 - 2, Urine WBC 1 - 3, Ur Epithelial Cells 4 - 5, Urine Bacteria Few 09/02/16 06:20: Sodium 137, Potassium 4.6, Chloride 107, Carbon Dioxide 21, Anion Gap 14, BUN 19, Creatinine 1.0, Est GFR ( Amer) > 60, Est GFR (Non- Af Amer) > 60, Random Glucose 83, Calcium 9.8, Magnesium 2.1, Total Bilirubin 0.4, AST 27, ALT 32, Alkaline Phosphatase 64, Lactate Dehydrogenase 391, Total Creatine Kinase 155, Troponin I < 0.01, Total Protein 7.8, Albumin 4.2, Globulin 3.6, Albumin/Globulin Ratio 1.2 09/02/16 06:20: WBC 8.2, RBC 4.91, Hgb 13.2, Hct 40.0, MCV 81.5, MCH 26.9, MCHC 33.0, RDW 15.1 H, Plt Count 322, MPV 9.3, Gran % 66.6, Lymph % (Auto) 19.8 L, [place] % (Auto) 9.4 H, Eos % (Auto) 3.7, Baso % (Auto) 0.5, Gran # 5.47, Lymph # 1.6, [place] # 0.8 H, Eos # 0.3, Baso # 0.04 09/02/16 05:43: POC Glucose (mg/dL) 79 I have reviewed the lab results: Yes - RAD Interpretation Radiology Orders: 09/02/16 06:02 CHEST PORTABLE [RAD] Stat - Scribe Statement The provider has reviewed the documentation as recorded by the Scribe Licha Lema Provider Scribe Attestation: All medical record entries made by the Scribe were at my direction and personally dictated by me. I have reviewed the chart and agree that the record accurately reflects my personal performance of the history, physical exam, medical decision making, and the department course for this patient. I have also personally directed, reviewed, and agree with the discharge instructions and disposition. Disposition/Present on Arrival - Present on Arrival Any Indicators Present on Arrival: No History of DVT/PE: No History of Uncontrolled Diabetes: No Urinary Catheter: No History of Decub. Ulcer: No History Surgical Site Infection Following: None - Disposition Have Diagnosis and Disposition been Completed?: Yes Diagnosis: Syncope Disposition: HOME/ ROUTINE Disposition Time: 07:00 Patient Plan: Discharge Condition: GOOD Discharge Instructions (ExitCare): Syncope (ED) Additional Instructions: Follow up with PMD within 2 days. Return to emergency department if condition worsens. Keep hydrated and eat in the morning. Forms: WORK NOTE
[2016-09-02 07:14] LABS: PH,URINE 5.5 (4.7-8.0); URINE BILIRUBIN NEGATIVE (NEGATIVE); URINE BLOOD SMALL (NEGATIVE); URINE GLUCOSE (UA) NEGATIVE (NEGATIVE); URINE LEUKOCYTE ESTERASE SMALL Leu/uL (NEGATIVE); URINE NITRATE NEGATIVE (NEGATIVE); URINE PROTEIN NEGATIVE mg/dL (<30 mg/dL); URINE UROBILINOGEN 0.2 E.U./dL (<1 E.U./dL)
[2016-09-02 07:15] LABS: URINE APPEARANCE CLEAR (CLEAR); URINE COLOR YELLOW (YELLOW)
[2016-09-02 07:32] LABS: URINE BACTERIA FEW (NEG); URINE RBC 0 - 2 /hpf (0-2)
[2016-09-02 09:00] VITALS: BP 128/71; PULSE 61; RESP 18; TEMP 98; O2SAT 99
--- NOTE | 2016-09-02 09:21 | RAD ---
HISTORY: vasovagal COMPARISON: 07/29/2016 FINDINGS: LUNGS: No active pulmonary disease. PLEURA: No significant pleural effusion identified, no pneumothorax apparent. CARDIOVASCULAR: Normal. OSSEOUS STRUCTURES: No significant abnormalities. VISUALIZED UPPER ABDOMEN: Normal. OTHER FINDINGS: None. IMPRESSION: No active disease.
--- NOTE | 2016-09-02 13:31 | CARD ---
APPROVED REPORT EKG Measurement Heart [id number] <Conclusion> Normal sinus rhythm Normal ECG
== END 2016-09-02 09:15 | disposition home or self-care (01) ==
LOC: ED 05:33
DX: R55 Syncope and collapse (principal); Z83.3 Family history of diabetes mellitus

== ENCOUNTER 2016-10-26 16:34 | Emergency (ER) | payer SELFPAY ==
[2016-10-26 16:35] VITALS: BMI 33.3
[2016-10-26 16:56] VITALS: BP 107/71; PULSE 77; RESP 16; TEMP 98.3; O2SAT 100
--- NOTE | 2016-10-26 17:42 | ED PDOC ---
Arrival/HPI - General Chief Complaint: ENT Problem Time Seen by Provider: 10/26/16 17:19 Historian: Patient - History of Present Illness Narrative History of Present Illness (Text): 10/26/16 17:59 20-year-old female presents today with a one-week history of sore throat. Patient denies fevers or chills. Denies difficulty breathing or swallowing. She is complaining of swollen tonsils. Denies sick contacts. No medications have been taken at home. Patient states the swelling has worsened over the past week. Patient states she's had a history of strep throat in the past. No other complaints Past Medical History - Provider Review Nursing Documentation Reviewed: Yes - Travel History Have you recently traveled outside [place] w/in the past 3 mons?: No - Infectious Disease Hx of Infectious Diseases: None - Tetanus Immunization Tetanus Immunization: Up to Date - Past Medical History Past Medical History: No Previous - Cardiac Hx Cardiac Disorders: No - Pulmonary Hx Asthma: Yes - Neurological Hx Neurological Disorder: No - HEENT Hx HEENT Disorder: No - Renal Hx Renal Disorder: No - Endocrine/Metabolic Hx Endocrine Disorders: No - Hematological/Oncological Hx Blood Disorders: Yes Hx Anemia: Yes - Integumentary Hx Dermatological Disorder: No - Musculoskeletal/Rheumatological Hx Musculoskeletal Disorders: No Hx Falls: No - Gastrointestinal Hx Gastrointestinal Disorders: No - Genitourinary/Gynecological Hx Genitourinary Disorders: No - Psychiatric Hx Psychophysiologic Disorder: Yes Hx Depression: Yes Hx Substance Use: No - Past Surgical History Past Surgical History: No Previous - Anesthesia Hx Anesthesia: No Hx Anesthesia Reactions: No Hx Malignant Hyperthermia: No - Suicidal Assessment Feels Threatened In Home Enviroment: No Family/Social History - Physician Review Nursing Documentation Reviewed: Yes Family/Social History: Unknown Family HX Smoking Status: Never Smoked Hx Alcohol Use: No Hx Substance Use: No Hx Substance Use Treatment: No Allergies/Home Meds Allergies/Adverse Reactions: Allergies tea tree Allergy (Verified 10/26/16 16:54) ANAPHYLAXIS Review of Systems - Review of Systems Constitutional: absent: Fatigue, Fevers ENT: Sore Throat, Sinus Congestion Respiratory: absent: SOB, Cough Cardiovascular: absent: Chest Pain, Palpitations Gastrointestinal: absent: Abdominal Pain, Diarrhea, Nausea, Vomiting Musculoskeletal: absent: Arthralgias Skin: absent: Rash, Pruritis Neurological: absent: Headache, Dizziness Psychiatric: absent: Anxiety, Depression Physical Exam Vital Signs Reviewed: Yes Vital Signs Temp Pulse Resp BP Pulse Ox 10/26/16 16:51 98.3 F 77 16 107/71 100 Temperature: Afebrile Blood Pressure: Normal Pulse: Regular Respiratory Rate: Normal Appearance: Positive for: Well-Appearing, Non-Toxic, Comfortable Pain Distress: None Mental Status: Positive for: Alert and Oriented X 3 - Systems Exam Head: Present: Atraumatic Ears: Present: Normal, NORMAL TM Mouth: Present: Moist Mucous Membranes, Normal Lips, Normal Tounge, Normal Teeth. No: Drooling, Trismus Pharnyx: Present: ERYTHEMA, TONSILS ENLARGED. No: Peritonsilar Swelling, Uvular Deviation, Muffled/Hoarse Voice, Strider, Soft Palate/Uvular Edema Nose (External): Present: Atraumatic Nose (Internal): Present: Normal Inspection Neck: Present: Normal Range of Motion, Trachea Midline. No: Lymphadenopathy Respiratory/Chest: Present: Clear to Auscultation, Good Air Exchange. No: Respiratory Distress, Accessory Muscle Use Cardiovascular: Present: Regular Rate and Rhythm, Normal S1, S2. No: Murmurs Abdomen: No: Tenderness Neurological: Present: GCS=15 Skin: Present: Warm, Dry, Normal Color. No: Rashes Psychiatric: Present: Alert, Oriented x 3 Medical Decision Making ED Course and Treatment: 10/26/16 17:45 Patient is nontoxic well appearing in no distress. Vital signs are stable Tolerating p.o. fluids and solids. speaking in full sentences. Motrin 600 mg p.o. amoxicillin. Decadron 10 mg IM Patient reassessment: Patient feeling better after medications, vital signs stable. Moist mucous membranes. I advised follow up with primary care physician within the next 2 days, stressed importance of f/u with ENT. advised to increase fluids take medications as prescribed and return if symptoms worsen persist or if new symptoms develop Patient verbalizes understanding of discharge instructions and need for immediate followup. IMPRESSION; pharyngitis Motrin every 6 hours as needed for pain/fever reduction Increase fluids amoxicillin 3 times daily x 10 days. Follow up primary care physician within the next 2 days Follow up with the ENT specialist within the next 2 days. Saltwater gargles, throat lozenges Return if symptoms worsen persist or if the symptoms develop - Medication Orders Current Medication Orders: Discontinued Medications Amoxicillin (Amoxil 500 Mg Cap) 500 mg PO STAT STA PRN Reason: Protocol Stop: 10/26/16 17:20 Last Admin: 10/26/16 17:32 Dose: 500 mg Dexamethasone (Decadron Inj) 10 mg IM STAT STA Stop: 10/26/16 17:20 Last Admin: 10/26/16 17:32 Dose: 10 mg Ibuprofen (Motrin Tab) 600 mg PO STAT STA Stop: 10/26/16 17:20 Last Admin: 10/26/16 17:32 Dose: 600 mg Disposition/Present on Arrival - Present on Arrival Any Indicators Present on Arrival: No History of DVT/PE: No History of Uncontrolled Diabetes: No Urinary Catheter: No History of Decub. Ulcer: No History Surgical Site Infection Following: None - Disposition Have Diagnosis and Disposition been Completed?: Yes Diagnosis: Pharyngitis Disposition: HOME/ ROUTINE Disposition Time: 17:25 Patient Plan: Discharge Condition: GOOD Discharge Instructions (ExitCare): Pharyngitis (ED) Additional Instructions: Motrin every 6 hours as needed for pain/fever reduction Increase fluids amoxicillin 3 times daily x 10 days. Follow up primary care physician within the next 2 days Follow up with the ENT specialist within the next 2 days. Saltwater gargles, throat lozenges Return if symptoms worsen persist or if the symptoms develop Prescriptions: Amoxicillin 500 mg PO TID #30 tab Ibuprofen [Motrin] 600 mg PO Q6H PRN #20 tab PRN Reason: pain/fever reduction Referrals: Juarez Amin DO [Staff Provider] - Follow up with primary Eleuterio Mckeon MD [Staff Provider] - Follow up with primary Forms: [facility] ([place])
== END 2016-10-26 17:53 | disposition home or self-care (01) ==
LOC: ED 16:34
DX: J02.9 Acute pharyngitis, unspecified (principal)
CPT/HCPCS: 96372; 99283; J1100

== ENCOUNTER 2016-12-05 16:48 | Emergency (ER) | payer MEDICAID, OTHER ==
[2016-12-05 16:56] VITALS: BMI 31.6
[2016-12-05 17:08] VITALS: RESP 18; TEMP 98.2; O2SAT 98
[2016-12-05] MEDS ORDERED: Sodium Chloride 0.9% 1,000 ML IV STA (17:33)
[2016-12-05 17:49] LABS: BASO # 0.04 K/mm3 (0.0-2.0); BASO % 0.6 % (0.0-3.0); EOS # 0.1 (0.0-0.7); EOS % 1.6 % (1.5-5.0); GRAN # 3.97 (1.4-6.5); GRAN % 61.8 % (50.0-68.0); HEMATOCRIT 39.2 % (36.0-48.0); LYMPH # 1.8 (1.2-3.4); LYMPH % 27.8 % (22.0-35.0); MEAN CELL VOLUME 81.3 fl (80.0-105.0); MEAN CORPUSCULAR HGB CONC 33.2 g/dl (31.0-37.0); MEAN PLATELET VOLUME 9.1 fl (7.0-11.0); MONO # 0.5 (0.1-0.6); MONO % 8.2 % (1.0-6.0); RED CELL DISTRIBUTION WIDTH 14.1 % (11.5-14.5); WHITE BLOOD COUNT 6.4 10^3/ul (4.5-11.0)
--- NOTE | 2016-12-05 17:52 | ED PDOC ---
Arrival/HPI <El Katz - Last Filed: 12/05/16 18:05> - General Historian: Patient - History of Present Illness Time/Duration: 1-3 hours Symptom Onset: Sudden Symptom Course: Improving Activities at Onset: Light Context: Home <Gordon Sanchez - Last Filed: 12/05/16 19:08> - General Chief Complaint: Syncope Time Seen by Provider: 12/05/16 16:51 - History of Present Illness Narrative History of Present Illness (Text): 12/05/16 17:34 21yo F PMH multiple episodes of syncope (last being 1.5 months ago), depression and anxiety who presents to ED s/p syncope 3 hours ago. pt states she had not eaten since the night before and was in the kitchen when she passed out. pt denies vision or hearing changes, dizziness or weakness before passing out. pt is unsure if she hit her head, but states that upon waking up, she has a headache. pt unsure if she had any seizure activity. upon being awoken by her mother, about an hour before presentation, pt had a headache and was difficult to arouse and could not get up on her own. no blood was noted on the head or ground. pt denies n/v, urinary or bowel incontinence . denies recent chills, fevers, chest pain or shortness of breath. pt does state that she has been under a lot of stress at work and sometimes experiences palpitations and shortness of breath. Pt does have suicidal ideations and past attempts (cutting wrists) but denies any recent attempts. also denies homicidal ideations. pt has had extensive workup with cardiology and neurology as outpatient (including ECHO and EEG within the last 2-3 years) but have all been inconclusive. pt currently menstruating. (Gordon Sanchez) Past Medical History - Provider Review Nursing Documentation Reviewed: Yes - Infectious Disease Hx of Infectious Diseases: None - Tetanus Immunization Tetanus Immunization: Up to Date - Past Medical History Past Medical History: No Previous - Cardiac Hx Cardiac Disorders: No - Pulmonary Hx Asthma: Yes - Neurological Hx Neurological Disorder: Yes Hx Syncope: Yes - HEENT Hx HEENT Disorder: No - Renal Hx Renal Disorder: No - Endocrine/Metabolic Hx Endocrine Disorders: No - Hematological/Oncological Hx Blood Disorders: Yes Hx Anemia: Yes - Integumentary Hx Dermatological Disorder: No - Musculoskeletal/Rheumatological Hx Musculoskeletal Disorders: No Hx Falls: No - Gastrointestinal Hx Gastrointestinal Disorders: No - Genitourinary/Gynecological Hx Genitourinary Disorders: No - Psychiatric Hx Psychophysiologic Disorder: Yes Hx Anxiety: Yes Hx Depression: Yes Hx Substance Use: No - Past Surgical History Past Surgical History: No Previous - Anesthesia Hx Anesthesia: No Hx Anesthesia Reactions: No Hx Malignant Hyperthermia: No - Suicidal Assessment Feels Threatened In Home Enviroment: No <Gordon Sanchez - Last Filed: 12/05/16 19:08> Family/Social History - Physician Review Nursing Documentation Reviewed: Yes Family/Social History: No Known Family HX Smoking Status: Never Smoked Hx Alcohol Use: Yes (used to binge in high school) Frequency of alcohol use: Few days per week Hx Substance Use: Yes (marijuana in high school) Hx Substance Use Treatment: No <Gordon Sanchez - Last Filed: 12/05/16 19:08> Allergies/Home Meds <El Katz - Last Filed: 12/05/16 18:05> <Gordon Sanchez - Last Filed: 12/05/16 19:08> Allergies/Adverse Reactions: Allergies tea tree Allergy (Severe, Verified 12/05/16 16:55) ANAPHYLAXIS Home Medications: Home Meds Medication Instructions Recorded Confirmed No Known Home Med 12/05/16 12/05/16 Review of Systems - Physician Review All systems were reviewed & negative as marked: Yes - Review of Systems Constitutional: absent: Fevers Eyes: absent: Vision Changes ENT: absent: Hearing Changes Respiratory: absent: SOB, Cough Cardiovascular: absent: Chest Pain, Palpitations Musculoskeletal: absent: Back Pain, Neck Pain Neurological: Headache <Gordon Sanchez - Last Filed: 12/05/16 19:08> Physical Exam Vital Signs Reviewed: Yes Appearance: Positive for: Well-Appearing Pain Distress: None Mental Status: Positive for: Alert and Oriented X 3 Finger Stick Blood Glucose: 96 - Systems Exam Head: Present: Atraumatic, Normocephalic, Tenderness (diffuse ) Pupils: Present: PERRL Extroacular Muscles: Present: Other (pain upon R lateral gaze) Conjunctiva: Present: Normal Mouth: Present: Moist Mucous Membranes Pharnyx: Present: Normal Neck: Present: Normal Range of Motion. No: Meningeal Signs, MIDLINE TENDERNESS Respiratory/Chest: Present: Clear to Auscultation, Good Air Exchange. No: Respiratory Distress, Accessory Muscle Use, Wheezes Cardiovascular: Present: Regular Rate and Rhythm, Normal S1, S2. No: Murmurs Abdomen: Present: Normal Bowel Sounds. No: Tenderness, Distention Upper Extremity: Present: Normal Inspection, Normal ROM, Neurovascularly Intact Lower Extremity: Present: Normal Inspection. No: Edema Neurological: Present: Speech Normal, Motor Func Grossly Intact, Normal Sensory Function Skin: Present: Warm, Dry Psychiatric: Present: Alert, Oriented x 3. No: Anxious <Gordon Sanchez - Last Filed: 12/05/16 19:08> Vital Signs Temp Pulse Resp BP Pulse Ox 12/05/16 18:20 69 18 135/79 98 12/05/16 17:08 98.2 F 73 18 138/91 H 98 Medical Decision Making - EKG Interpretation Interpreted by ED Physician: Yes Type: 12 lead EKG <El Katz - Last Filed: 12/05/16 18:05> Re-evaluation Time: 18:51 Reassessment Condition: Re-examined, Improving,but remains with symptoms ( headaches ) - Lab Interpretations I have reviewed the lab results: Yes <Gordon Sanchez - Last Filed: 12/05/16 19:08> ED Course and Treatment: 12/05/16 18:05 21 yo female presents to the ED after a syncopal episode. Agree with resident note. EKG: NSR with sinus arrhythmia with no ST elevations, nl intervals CT Head and Orbits ordered. Labs ordered. EKG reviewed. Will reevaluate and disposition (El Katz) 12/05/16 17:56 Impression: 21yo F presenting s/p syncopal episode Plan: - CT head - Labs - UA Progress: EKG: NSR w/ sinus arrhythmia, 65bpm CT HEAD WITHOUT CONTRAST Report Date : 12/05/2016 18:18:30 Creator : Garett Keyes FINDINGS: Streak artifact from patient's earrings. Radiopaque foreign body left forehead appears consistent with jewelry. HEMORRHAGE: No intracranial hemorrhage. BRAIN: No mass effect or edema. No atrophy or chronic microvascular ischemic changes. VENTRICLES: No hydrocephalus. CALVARIUM: Unremarkable. PARANASAL SINUSES: Unremarkable as visualized. No significant inflammatory changes. MASTOID AIR CELLS: Unremarkable as visualized. No inflammatory changes. OTHER FINDINGS: None. IMPRESSION: No acute intracranial pathology identified. Findings as above. CT orbits without IV contrast Report Date : 12/05/2016 18:18:36 Creator : Gartet Keyes Dictator : Karina Moreno MD Findings: The facial bones appear intact without acute displaced fracture. The orbits appear unremarkable. The temporomandibular joints appear located. The included mastoid air cells appear clear. The included paranasal sinuses appear clear without air-fluid levels. The visualized brain appears unremarkable. Radiopaque foreign body left forehead appears consistent with jewelry. Impression: No acute pathology identified. 12/05/16 18:49 Reassessment: pt feeling better but complaining of hunger and mild headache. was explained to her about her scan results and encouraged to f/u with PMD and Cardio (Gordon Sanchez) - Lab Interpretations Lab Results: 12/05/16 17:30 12/05/16 17:30 Lab Results 12/05/16 18:00: Urine Color Light yellow, Urine Appearance Sl cloudy, Urine pH 6.5, Ur Specific [place] 1.010, Urine Protein Trace H, Urine Glucose (UA) Negative, Urine Ketones Negative, Urine Blood Large H, Urine Nitrate Negative, Urine Bilirubin Negative, Urine Urobilinogen 0.2, Ur Leukocyte Esterase Trace H , Urine RBC 1 - 3, Urine WBC 2 - 5, Ur Epithelial Cells 6 - 8, Urine Bacteria Mod 12/05/16 17:30: Sodium 139, Potassium 4.0, Chloride 107, Carbon Dioxide 24, Anion Gap 12, BUN 13, Creatinine 1.0, Est GFR ( Amer) > 60, Est GFR (Non- Af Amer) > 60, Random Glucose 91, Calcium 9.3, Phosphorus 3.4, Magnesium 2.2, Total Bilirubin 0.4, AST 29, ALT 28, Alkaline Phosphatase 61, Total Protein 7.4 , Albumin 4.2, Globulin 3.3, Albumin/Globulin Ratio 1.3 12/05/16 17:30: WBC 6.4 D, RBC 4.82, Hgb 13.0, Hct 39.2, MCV 81.3, MCH 27.0, MCHC 33.2, RDW 14.1, Plt Count 362, MPV 9.1, Gran % 61.8, Lymph % (Auto) 27.8, [place] % (Auto) 8.2 H, Eos % (Auto) 1.6, Baso % (Auto) 0.6, Gran # 3.97, Lymph # 1.8, [place] # 0.5, Eos # 0.1, Baso # 0.04 12/05/16 17:23: POC Glucose (mg/dL) 96 - RAD Interpretation Radiology Orders: 12/05/16 17:32 HEAD W/O CONTRAST [CT] Stat 12/05/16 18:05 ORBITS/ FACIALS W/O CONTRAST [CT] Stat - Medication Orders Current Medication Orders: Discontinued Medications Sodium Chloride (Sodium Chloride 0.9%) 1,000 mls @ 999 mls/hr IV .Q1H1M STA Stop: 12/05/16 18:33 Last Admin: 12/05/16 17:49 Dose: 999 mls/hr eMAR Start Stop Document 12/05/16 17:49 LA (Rec: 12/05/16 17:52 LA [id number]) Intravenous Solution Start Date 12/05/16 Start Time 17:52 End Date 12/05/16 End time 18:53 Total Infusion Time 61 Ketorolac Tromethamine (Toradol) 30 mg IVP STAT STA Stop: 12/05/16 18:48 Disposition/Present on Arrival <El Katz - Last Filed: 12/05/16 18:05> - Present on Arrival Any Indicators Present on Arrival: No History of DVT/PE: No History of Uncontrolled Diabetes: No Urinary Catheter: No History of Decub. Ulcer: No History Surgical Site Infection Following: None - Disposition Have Diagnosis and Disposition been Completed?: Yes Disposition Time: 18:51 Patient Plan: Discharge <Gordon Sanchez - Last Filed: 12/05/16 19:08> - Disposition Diagnosis: Syncope Disposition: HOME/ ROUTINE Patient Problems: Current Active Problems Problem Status Onset Syncope Acute Condition: FAIR Discharge Instructions (ExitCare): Syncope (ED) Additional Instructions: - please follow up with [facility] clinic for establishing care - please follow up with Cardiology - if you continue feeling weak, have any seizure activity, faint or feel palpitations, shortness of breath, chest pain or any weakness/worsening of headache, please go to ER for workup - avoid stressors at home, and make sure to eat properly and stay hydrated Referrals: PCP,NO [Primary Care Provider] - Follow up with primary [facility] [Outside] - Follow up with primary Hunter Barfield MD [Staff Provider] - Follow up with primary Forms: [employer] ([place])
[2016-12-05 18:00] LABS: ALB/GLOB RATIO 1.3 (1.1-1.8); ALKALINE PHOSPHATASE 61 U/L (38-126); ALT/SGPT 28 U/L (7-56); AST/SGOT 29 U/L (14-36); BILIRUBIN,TOTAL 0.4 mg/dL (0.2-1.3); BLOOD UREA NITROGEN 13 mg/dL (7-21); CALCIUM 9.3 mg/dL (8.4-10.5); CARBON DIOXIDE 24 mmol/L (21-33); CHLORIDE 107 mmol/L (98-107); GFR AFRICAN-AMERICAN > 60; GLUCOSE,RANDOM 91 mg/dL (70-110); MAGNESIUM 2.2 mg/dL (1.7-2.2); PHOSPHOROUS 3.4 mg/dL (2.5-4.5); SODIUM 139 mmol/L (132-148); TOTAL PROTEIN 7.4 g/dL (5.8-8.3)
[2016-12-05 18:19] LABS: PH,URINE 6.5 (4.7-8.0); URINE BILIRUBIN NEGATIVE (NEGATIVE); URINE BLOOD LARGE (NEGATIVE); URINE GLUCOSE (UA) NEGATIVE (NEGATIVE); URINE KETONE NEGATIVE (NEGATIVE); URINE LEUKOCYTE ESTERASE TRACE Leu/uL (NEGATIVE); URINE PROTEIN TRACE mg/dL (<30 mg/dL); URINE UROBILINOGEN 0.2 E.U./dL (<1 E.U./dL)
[2016-12-05 18:20] VITALS: BP 135/79; PULSE 69
--- NOTE | 2016-12-05 18:25 | CT ---
PROCEDURE: CT HEAD WITHOUT CONTRAST. HISTORY: syncope COMPARISON: None available. TECHNIQUE: Axial computed tomography images were obtained through the head/brain without intravenous contrast. Radiation dose: Total exam DLP = 930.49 mGy-cm. This CT exam was performed using one or more of the following dose reduction techniques: Automated exposure control, adjustment of the mA and/or kV according to patient size, and/or use of iterative reconstruction technique. FINDINGS: Streak artifact from patient's earrings. Radiopaque foreign body left forehead appears consistent with jewelry. HEMORRHAGE: No intracranial hemorrhage. BRAIN: No mass effect or edema. No atrophy or chronic microvascular ischemic changes. VENTRICLES: No hydrocephalus. CALVARIUM: Unremarkable. PARANASAL SINUSES: Unremarkable as visualized. No significant inflammatory changes. MASTOID AIR CELLS: Unremarkable as visualized. No inflammatory changes. OTHER FINDINGS: None. IMPRESSION: No acute intracranial pathology identified. Findings as above.
[2016-12-05 18:29] LABS: URINE APPEARANCE SL CLOUDY (CLEAR); URINE COLOR LIGHT YELLOW (YELLOW)
--- NOTE | 2016-12-05 18:41 | CT ---
CT orbits without IV contrast Indication: Syncope with painful right lateral gaze Comparison: None available. Technique: Axial computed tomography images were obtained of the orbits without the use of intravenous contrast. Coronal and sagittal reformatted images were generated and reviewed. This CT exam was performed using 1 or more of the falling dose reduction techniques: Automated exposure control, adjustment of the MAA and/or kV according to patient size, and/or use of iterative reconstruction technique. Radiation dose: Total exam DLP = 419.82 MGy-cm. Findings: The facial bones appear intact without acute displaced fracture. The orbits appear unremarkable. The temporomandibular joints appear located. The included mastoid air cells appear clear. The included paranasal sinuses appear clear without air-fluid levels. The visualized brain appears unremarkable. Radiopaque foreign body left forehead appears consistent with jewelry. Impression: No acute pathology identified.
[2016-12-05 18:58] LABS: URINE BACTERIA MOD (NEG)
--- NOTE | 2016-12-06 11:45 | CARD ---
APPROVED REPORT EKG Measurement Heart [id number] <Conclusion> Normal sinus rhythm with sinus arrhythmia Normal ECG
== END 2016-12-05 19:55 | disposition home or self-care (01) ==
LOC: ED 16:48
DX: R55 Syncope and collapse (principal); D64.9 Anemia, unspecified
CPT/HCPCS: 70450; 70480; 80053; 81001; 82948; 83735; 84100; 85025; 87086; 93005; 96361; 96374; 99284; J1885; J7040

== ENCOUNTER 2017-02-09 14:28 | Emergency (ER) | payer SELFPAY ==
[2017-02-09 14:29] VITALS: BMI 31.6
[2017-02-09 14:38] VITALS: TEMP 98.6
--- NOTE | 2017-02-09 15:03 | ED PDOC ---
Arrival/HPI - General Chief Complaint: Shortness Of Breath Time Seen by Provider: 02/09/17 14:33 Historian: Patient - History of Present Illness Narrative History of Present Illness (Text): 02/09/17 15:00 A 21 year old female, who denies any past medical history, presents to the emergency department complaining of chest pain and shortness of breath for 1 hour. Patient denies any relieving or exacerbating factors. Patient reports history of dry cough but denies any fever, chills, nausea, vomiting, abdominal pain or any other complaints. Time/Duration: 1 hour Symptom Course: Unchanged Quality: Other Context: Home Past Medical History - Provider Review Nursing Documentation Reviewed: Yes - Infectious Disease Hx of Infectious Diseases: None - Tetanus Immunization Tetanus Immunization: Up to Date - Reproductive Menopause: No - Past Medical History Past Medical History: No Previous - Cardiac Hx Cardiac Disorders: No - Pulmonary Hx Asthma: Yes - Neurological Hx Neurological Disorder: Yes Hx Syncope: Yes - HEENT Hx HEENT Disorder: No - Renal Hx Renal Disorder: No - Endocrine/Metabolic Hx Endocrine Disorders: No - Hematological/Oncological Hx Blood Disorders: Yes Hx Anemia: Yes - Integumentary Hx Dermatological Disorder: No - Musculoskeletal/Rheumatological Hx Musculoskeletal Disorders: No Hx Falls: No - Gastrointestinal Hx Gastrointestinal Disorders: No - Genitourinary/Gynecological Hx Genitourinary Disorders: No - Psychiatric Hx Psychophysiologic Disorder: Yes Hx Anxiety: Yes Hx Depression: Yes Hx Substance Use: Yes (marijuana in high school) - Past Surgical History Past Surgical History: No Previous - Anesthesia Hx Anesthesia: No Hx Anesthesia Reactions: No Hx Malignant Hyperthermia: No - Suicidal Assessment Feels Threatened In Home Enviroment: No Family/Social History - Physician Review Nursing Documentation Reviewed: Yes Family/Social History: No Known Family HX Smoking Status: Never Smoked Hx Alcohol Use: Yes (used to binge in high school) Hx Substance Use: Yes (marijuana in high school) Hx Substance Use Treatment: No Allergies/Home Meds Allergies/Adverse Reactions: Allergies tea tree Allergy (Severe, 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 absent: Sputum Cardiovascular: Chest Pain Gastrointestinal: absent: Abdominal Pain, Nausea, Vomiting Physical Exam Vital Signs Reviewed: Yes Vital Signs Temp Pulse Resp BP Pulse Ox 02/09/17 16:07 89 18 125/75 98 02/09/17 16:06 18 02/09/17 14:33 98.6 F 96 H 20 128/84 96 Temperature: Afebrile Blood Pressure: Normal Pulse: Tachycardic Respiratory Rate: Normal Appearance: Positive for: Well-Appearing, Non-Toxic, Comfortable Pain Distress: None Mental Status: Positive for: Alert and Oriented X 3 - Systems Exam Head: Present: Atraumatic, Normocephalic Pupils: Present: PERRL Extroacular Muscles: Present: EOMI Conjunctiva: Present: Normal Mouth: Present: Moist Mucous Membranes Pharnyx: Present: Normal. No: ERYTHEMA, EXUDATE, TONSILS ENLARGED Neck: Present: Normal Range of Motion Respiratory/Chest: Present: Clear to Auscultation, Good Air Exchange. No: Respiratory Distress, Accessory Muscle Use Cardiovascular: Present: Regular Rate and Rhythm, Normal S1, S2. No: Murmurs Abdomen: Present: Normal Bowel Sounds. No: Tenderness, Distention, Peritoneal Signs Back: Present: Normal Inspection Upper Extremity: Present: Normal Inspection. No: Cyanosis, Edema Lower Extremity: Present: Normal Inspection. No: Edema Neurological: Present: GCS=15, CN II-XII Intact, Speech Normal Skin: Present: Warm, Dry, Normal Color. No: Rashes Psychiatric: Present: Alert, Oriented x 3, Normal Insight, Normal Concentration Medical Decision Making ED Course and Treatment: 02/09/17 15:00 Impression: A 21 year old female with chest pain and shortness of breath. Patient notes dry cough. Patient is PERC negative. Plan: -- Chest xray -- EKG -- Labs -- Urinalysis -- Tylenol -- Reassess and disposition Progress Notes: EKG shows NSR at [address]/T changes. Interpreted by me. 02/09/17 16:30 Chest xray read and interpreted by me, which shows no active disease. 02/09/17 17:26 perc neg. 02/10/17 11:25 - Lab Interpretations Lab Results: 02/09/17 16:00 02/09/17 16:00 Lab Results 12/14/17 16:55: PT 11.5, INR 1.05, APTT 34.0 02/09/17 16:00: Sodium 143, Potassium 4.0, Chloride 110 H, Carbon Dioxide 24, Anion Gap 14, BUN 18, Creatinine 1.0, Est GFR ( Amer) > 60, Est GFR (Non- Af Amer) > 60, Random Glucose 100, Calcium 10.1, Total Bilirubin 0.4, AST 27, ALT 33, Alkaline Phosphatase 69, Total Protein 7.8, Albumin 4.5, Globulin 3.4, Albumin/Globulin Ratio 1.3 02/09/17 16:00: WBC 8.1 D, RBC 4.95, Hgb 13.7, Hct 41.4, MCV 83.6, MCH 27.7, MCHC 33.1, RDW 13.9, Plt Count 370, MPV 9.1, Gran % 66.2, Lymph % (Auto) 24.1, Villalba % (Auto) 7.7 H, Eos % (Auto) 1.6, Baso % (Auto) 0.4, Gran # 5.37, Lymph # 2.0, Villalba # 0.6, Eos # 0.1, Baso # 0.03 - RAD Interpretation Radiology Orders: 02/09/17 14:57 CHEST PORTABLE [RAD] Stat - Medication Orders Current Medication Orders: Discontinued Medications Acetaminophen (Tylenol 325mg Tab) 975 mg PO STAT STA Stop: 02/09/17 14:58 - Scribe Statement The provider has reviewed the documentation as recorded by the Nimisha Packer Provider Scribe Attestation: All medical record entries made by the Rodolfoibbijan were at my direction and personally dictated by me. I have reviewed the chart and agree that the record accurately reflects my personal performance of the history, physical exam, medical decision making, and the department course for this patient. I have also personally directed, reviewed, and agree with the discharge instructions and disposition. Disposition/Present on Arrival - Present on Arrival Any Indicators Present on Arrival: No History of DVT/PE: No History of Uncontrolled Diabetes: No Urinary Catheter: No History of Decub. Ulcer: No History Surgical Site Infection Following: None - Disposition Have Diagnosis and Disposition been Completed?: Yes Diagnosis: Chest pain Disposition: HOME/ ROUTINE Disposition Time: 11:00 Condition: STABLE Discharge Instructions (ExitCare): Chest Pain (ED) Additional Instructions: follow up with your doctor/specialist. return to er with worsening symptoms or concerns. Referrals: Cathy Serrano Req, [Non-Staff] - Follow up with primary Jair Ross MD [Staff Provider] - Follow up with primary Forms: [employer] [facility] [employer] ([place])
[2017-02-09 16:07] VITALS: BP 125/75; PULSE 89; RESP 18; O2SAT 98
[2017-02-09 16:19] LABS: BASO # 0.03 K/mm3 (0.0-2.0); BASO % 0.4 % (0.0-3.0); EOS # 0.1 (0.0-0.7); EOS % 1.6 % (1.5-5.0); GRAN # 5.37 (1.4-6.5); GRAN % 66.2 % (50.0-68.0); HEMATOCRIT 41.4 % (36.0-48.0); LYMPH % 24.1 % (22.0-35.0); MEAN CELL VOLUME 83.6 fl (80.0-105.0); MEAN CORPUSCULAR HEMOGLOBIN 27.7 pg (25.0-35.0); MEAN CORPUSCULAR HGB CONC 33.1 g/dl (31.0-37.0); MEAN PLATELET VOLUME 9.1 fl (7.0-11.0); MONO # 0.6 (0.1-0.6); MONO % 7.7 % (1.0-6.0); RED CELL DISTRIBUTION WIDTH 13.9 % (11.5-14.5); WHITE BLOOD COUNT 8.1 10^3/ul (4.5-11.0)
[2017-02-09 16:33] LABS: ALB/GLOB RATIO 1.3 (1.1-1.8); ALKALINE PHOSPHATASE 69 U/L (38-126); ALT/SGPT 33 U/L (7-56); AST/SGOT 27 U/L (14-36); BILIRUBIN,TOTAL 0.4 mg/dL (0.2-1.3); BLOOD UREA NITROGEN 18 mg/dL (7-21); CALCIUM 10.1 mg/dL (8.4-10.5); CARBON DIOXIDE 24 mmol/L (21-33); CHLORIDE 110 mmol/L (98-107); GFR AFRICAN-AMERICAN > 60; GLUCOSE,RANDOM 100 mg/dL (70-110); SODIUM 143 mmol/L (132-148); TOTAL PROTEIN 7.8 g/dL (5.8-8.3)
[2017-02-09 17:16] LABS: INR 1.05 (0.93-1.08)
--- NOTE | 2017-02-09 18:46 | CARD ---
APPROVED REPORT EKG Measurement Heart [id number] <Conclusion> Normal sinus rhythm Normal ECG
--- NOTE | 2017-02-10 09:09 | RAD ---
HISTORY: cp COMPARISON: 09/02/2016 FINDINGS: LUNGS: No active pulmonary disease. PLEURA: No significant pleural effusion identified, no pneumothorax apparent. CARDIOVASCULAR: Normal. OSSEOUS STRUCTURES: No significant abnormalities. VISUALIZED UPPER ABDOMEN: Normal. OTHER FINDINGS: None. IMPRESSION: No active disease.
== END 2017-02-09 17:38 | disposition home or self-care (01) ==
LOC: ED 14:28
DX: R07.9 Chest pain, unspecified (principal)